=== PATIENT | female | born 1960 | race African-American/Black ===

== ENCOUNTER 2023-12-07 08:18 | Emergency (ER) | payer BC, SELFPAY ==
[2023-12-07 08:22] VITALS: BP 139/95; PULSE 111; RESP 24; TEMP 36; O2SAT 100; BMI 26.3
[2023-12-07 08:48] LABS: Glucose, Point-of-Care* 113 mg/dl (60-115)
[2023-12-07 08:53] VITALS: O2SAT 98
--- NOTE | 2023-12-07 08:53 | XR_ITS ---
Patient: ANTIONE BARROW Facility:?[facility] Patient ID:?[id number] Site Patient ID:?[id number]. Site :?[id number] Study:?XRay-Chest 2 view-12/07/2023 9:15:29 AM Ordering Physician:Jamshid Townsend Final Report: INDICATION: Dyspnea COMPARISON: February 13, 2019 TECHNIQUE: PA and lateral views of the chest were acquired FINDINGS: TUBES AND LINES: None. HEART AND MEDIASTINUM: The heart size is normal. The mediastinal contour appears normal for patient age. LUNGS AND PLEURAL SPACES: Airspace opacity at the left base. This was present in 2019. This could be a chronic finding such as scarring or could be a recurrent abnormality such as pneumonia.Examination is otherwise unremarkable. OSSEOUS STRUCTURES: Age-appropriate appearance. No acute focal finding. IMPRESSION: Airspace opacity at the left base. This was present in 2019. This could be a chronic finding such as focal scarring though a recurrent abnormality such as pneumonia is possible. Correlate with the clinical findings. Dictated by Fabio Tolliver MD @ 12/07/2023 9:23:32 AM Signed by:?Fabio Tolliver MD @12/07/2023 9:23:32 AM (Electronic Signature)
--- NOTE | 2023-12-07 08:58 | ED.GENADULT ---
HPI - General Adult General Chief complaint: Diabetic Related Problem Stated complaint: low blood sugar Time Seen by Provider: 12/07/23 08:20 Source: patient and family Mode of arrival: ambulatory Limitations: no limitations History of Present Illness HPI narrative: Patient is a 63-year-old female, history of insulin-dependent diabetes presenting today with nausea, vomiting and diarrhea going on day 3. Today she stated that she felt so weak that she was afraid to be home alone her partner went to work so she requested to be brought into the emergency department. This all started Tuesday afternoon with multiple episodes of vomiting and diarrhea. The vomiting subsided last evening she did not have any vomiting overnight or today. However, the diarrhea continues. She states that she has already had 4 or 5 episodes in the last 5 hours. Patient denies fevers. 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 so she has a chronic cough and chronic mild shortness of breath, these 2 things are unchanged. She is also on chronic antibiotic therapy because of her lung condition. She denies chest pain or abdominal pain. She denies increased urinary frequency, urgency or dysuria. She denies any blood in her vomit or stool. She states that she did take her long-acting insulin both Tuesday and Tuesday, did not take her short-acting with meals because she has not been eating. She has noticed that her glucose has been in the 50s and 60s and she has to eat a small snack or sugar to bring it back up but it falls fairly quickly again back into the 60s and she is concerned about this. She denies headache, confusion, altered mental status, slurred speech or any neurologic deficits. She denies recent traveling, she denies any skin rashes. Patient also has history of diabetic peripheral neuropathy. Patient lives with her significant other in [place], she is here because her partner got a colonoscopy at [facility] and she was impressed by the care that he received. Related Data Home Medications ?Medication ?Instructions ?Recorded ?Confirmed beclomethasone dipropionate 80 inhalation 12/07/23 mcg/actuation HFA breath activated aerosol (Qvar RediHaler) dulaglutide 4.5 mg/0.5 mL mg subcut 12/07/23 subcutaneous pen injector ([facility] flash glucose sensor (FreeStyle 12/07/23 12/07/23 Edgar 2 Sensor kit) gabapentin 300 mg capsule mg PO 12/07/23 glipizide 5 mg tablet, extended 5 mg PO DAILY 12/07/23 12/07/23 release 24 hr insulin aspart U-100 100 unit/mL subcut 12/07/23 (3 mL) subcutaneous pen (Novolog FlexPen U-100 Insulin aspart) insulin degludec 200 unit/mL (3 unit subcut 12/07/23 mL) subcutaneous pen (Tresiba FlexTouch U-200 insulin) insulin glargine-yfgn 100 unit/mL unit subcut 12/07/23 (3 mL) subcutaneous pen (Semglee (insulin glargine-yfgn) Pen) mycophenolate mofetil 500 mg tablet 1,000 mg PO BID 12/07/23 12/07/23 omeprazole 20 mg capsule,delayed 20 mg PO DAILY 12/07/23 12/07/23 release spironolactone 50 mg tablet 50 mg PO DAILY 12/07/23 12/07/23 sulfamethoxazole 800 1 tab PO 3XW 12/07/23 12/07/23 mg-trimethoprim 160 mg tablet Allergies Allergy/AdvReac Type Severity Reaction Status Date / Time No Known Drug Allergies Allergy Verified 12/07/23 08:31 Review of Systems Status of ROS: Reports: 10 or more systems reviewed and unremarkable except as noted in History and below [facility] Social History Smoking Status: Never smoker Do you use any of these nicotine containing products: None How often do you have a drink containing alcohol: never How often do you have six or more drinks on one occasion: Never AUDIT-C Alcohol total score: 0 Non-prescribed substance use: denies use Exam Narrative: Exam Narrative: Well-nourished well-developed patient in no acute distress. Alert and oriented. Answers questions appropriately. Mood and affect are appropriate. Thoughts are goal oriented and rational. No tangential or magical thinking noted. Patient speaks in full sentences without needing to catch her breath. She does not appear ill or toxic. HEENT: Normocephalic atraumatic. Pupils are equally round reactive to light. Extraocular muscles are intact. Conjunctivae are moist without any icterus noted. Moist mucous membranes. Posterior pharynx is normal. Neck is soft without any lymphadenopathy or thyromegaly. No masses are appreciated. Cardiovascular: Heart is regular rate and rhythm S1 and S2 are present without any murmurs. Lungs: Clear to auscultation bilaterally no wheezes rhonchi or rales are appreciated. Patient takes deep breaths without any discomfort. Abdomen: Soft and nontender nondistended with normal bowel sounds. No guarding or rebound. No masses or organomegaly appreciated. Extremities: Bilateral lower extremities are without edema. Skin: Well perfused without any obvious rashes. Const: Vital Signs, click to edit/add: Vital Signs - 24 hr 12/07/23 08:22 12/07/23 08:53 12/07/23 10:49 Temperature 96.8 F L Pulse Rate [Right Pulse Oximeter] 111 H 92 Respiratory Rate 24 16 Blood Pressure [Ri ght Upper Arm] 139/95 H 128/91 H Pulse Oximetry 100 98 98 Oxygen Delivery Me thod Room Air Room Air Course Course ED Course: Upon arrival patient is tachycardia with a pulse of 111. IV established and labs were drawn. Point of care glucose 113. Because of her weakness and tachycardia we did start her on 500 mL of normal saline as we encouraged her to drink water. CBC was unremarkable. Chemistries were normal. Lactate 1.4. Normal magnesium. LFTs unremarkable. Troponin less than 0.01. CRP less than 0.5. Triple swabs negative. UA unremarkable. Chest x-ray, read by me, does show a left lower lobe infiltrate. The per the radiologist this was present in 2019 and is not new. Given the fact that the patient has no new cough, shortness of breath, or fever I do not think that this represents an acute pneumonia. Patient was monitored for approximately 3 hours and did not have any diarrhea so we were not able to do a C diff collection. After fluids she did feel better, pulse went down into the 90s. Vital Signs Vital signs: Initial Vital Signs Temperature 96.8 F L 12/07/23 08:22 Temperature Source Temporal Artery Scan 12/07/23 08:22 Pulse Rate 111 H 12/07/23 08:22 Pulse Rhythm Regular 12/07/23 08:22 Respiratory Rate 24 12/07/23 08:22 Blood Pressure 139/95 H 12/07/23 08:22 Blood Pressure Mean 109 H 12/07/23 08:22 Blood Pressure Position Supine 12/07/23 08:22 Pulse Oximetry 100 12/07/23 08:22 Oxygen Delivery Method Room Air 12/07/23 08:22 Vital Signs Temperature 96.8 F L 12/07/23 08:22 Pulse Rate 111 H 12/07/23 08:22 Respiratory Rate 24 12/07/23 08:22 Blood Pressure 139/95 H 12/07/23 08:22 Pulse Oximetry 100 12/07/23 08:22 Oxygen Delivery Method Room Air 12/07/23 08:22 Temperature 96.8 F L 12/07/23 08:22 Pulse Rate 92 12/07/23 10:49 Respiratory Rate 16 12/07/23 10:49 Blood Pressure 128/91 H 12/07/23 10:49 Pulse Oximetry 98 12/07/23 10:49 Oxygen Delivery Method Room Air 12/07/23 10:49 Medications Administered Medications: Discontinued Medications Generic Name Dose Route Start Last Admin Trade Name Freq PRN Reason Stop Dose Admin Sodium Chloride 500 mls @ 500 mls/hr 12/07/23 08:52 12/07/23 10:20 0.9 % Sodium Chloride 500 Ml IV 12/07/23 09:51 Infused .Q1H ONE Infusion Ondansetron HCl 4 mg 12/07/23 08:52 12/07/23 09:00 Ondansetron 2 Mg/Ml Inj IVP 12/07/23 08:53 4 mg ONCE ONE Administration Medical Decision Making MDM Narrative Medical decision making narrative: 63-year-old female probable gastroenteritis. We discussed symptomatic treatment and careful monitoring of her blood sugars. Would recommend she return stool sample for C diff collection. Lab Data Lab results reviewed: Yes I reviewed the patient's lab results Labs: Lab Results 12/07/23 12/07/23 12/07/23 Range/Units 08:40 08:45 10:30 WBC 7.54 (4.50-11.00) K/uL RBC 4.31 (4.00-5.20) m/uL Hgb 13.2 (12.0-16.0) gm/dL Hct 40.2 (33.0-51.0) % MCV 93 (80-100) fL MCH 31 (26-34) pg MCHC 33 (32-36) gm/dL RDW Coeff of Yvette 12.2 (11.5-15.5) % Plt Count 310 (140-440) K/uL Neut % (Auto) 50.3 (42.0-72.0) % Lymph % (Auto) 40.5 (20-44) % [place] % (Auto) 8.0 (0.0-11.0) % Eos % (Auto) 0.7 (0.0-7.0) % Baso % (Auto) 0.4 (0.0-3.0) % Neut # (Auto) 3.80 (1.7-7.0) K/uL Lymph # (Auto) 3.05 H (0.90-2.90) K/uL [place] # (Auto) 0.60 (0.00-0.90) K/UL Eos # (Auto) 0.05 (0.00-0.50) K/uL Baso # (Auto) 0.03 (0.00-0.30) K/uL Abs Immat Gran (auto) 0.01 (0.00-0.30) K/uL Imm/Tot Granulo (auto) 0.1 % Sodium 137 (135-149) mmol/L Potassium 3.9 (3.6-5.1) mmol/L Chloride 104 (96-114) mmol/L Carbon Dioxide 23 (20-32) mmol/L Anion Gap 10 (7-15) mEq/L BUN 14 (7-30) mg/dL Creatinine 0.9 (0.5-1.5) mg/dL Estimated Creat Clear 52.91 Estimated GFR 71 ml/min Glucose 114 (60-115) mg/dL Lactate 1.4 (0.5-1.9) mmol/L Calcium 10.4 (8.4-10.6) mg/dL Magnesium 2.2 (1.5-2.6) mg/dL Total Bilirubin 1.2 (0.1-1.5) mg/dL Direct Bilirubin 0.2 (0.0-0.5) mg/dL AST 40 H (12-35) U/L ALT 29 (4-35) U/L Alkaline Phosphatase 68 (40-150) U/L Troponin I < 0.01 L (0.01-0.04) ng/mL C-Reactive Protein < 0.5 L (0.5-1.0) mg/dL Total Protein 8.4 H (6.0-8.3) g/dL Albumin 4.9 (3.3-5.0) g/dL Urine Color Dark yellow (Yellow) Urine Appearance Slightly Cloudy A (Clear) Urine pH 6.0 (5.0-8.5) Ur Specific Clarks 1.025 (1.000-1.030) Urine Protein 1+ A (Negative) Urine Glucose (UA) Negative (Negative) Urine Ketones Negative (Negative) Urine Blood Negative (Negative) Urine Nitrite Negative (Negative) Urine Bilirubin 1+ A (Negative) Urine Urobilinogen 1.0 (0.2-1.0) Ur Leukocyte Esterase Trace A (Negative) Urine RBC 0-2 (0-2) Urine WBC 0-2 (0-5) Ur Squamous Epith Cells Few (None-Few) Urine Bacteria Few A (None) Urine Mucus Few A (None) SARS-CoV-2 (PCR) Negative SARS-CoV-2 (Negative) Influenza Type A (PCR) Negative PCR FLU A (Negative) Influenza Type B (PCR) Negative PCR FLU B (Negative) RSV (PCR) Negative PCR RSV (Negative) POC Glucose 113 (60-115) mg/dl Imaging Data Chest x-ray: Attestation: I have reviewed the pertinent imaging results. Radiologist's impression: COMPARISON: February 13, 2019 TECHNIQUE: PA and lateral views of the chest were acquired FINDINGS: TUBES AND LINES: None. HEART AND MEDIASTINUM: The heart size is normal. The mediastinal contour appears normal for patient age. LUNGS AND PLEURAL SPACES: Airspace opacity at the left base. This was present in 2019. This could be a chronic finding such as scarring or could be a recurrent abnormality such as pneumonia.Examination is otherwise unremarkable. OSSEOUS STRUCTURES: Age-appropriate appearance. No acute focal finding. IMPRESSION: Airspace opacity at the left base. This was present in 2019. This could be a chronic finding such as focal scarring though a recurrent abnormality such as pneumonia is possible. Correlate with the clinical findings. Discharge Plan Discharge Clinical Impression: Gastroenteritis Additional Instructions: You will be sent home today with a stool collecting kit, return the sample when you are able. Make sure to stay well hydrated. Make sure that you are checking your glucose levels frequently throughout the day, avoid fast acting insulin until your appetite goes back to normal. Follow-up with your primary care provider at the end of this week or early next week. Prescriptions: No Action glipizide 5 mg tablet extended release 24hr 5 mg PO DAILY sulfamethoxazole-trimethoprim 800-160 mg tablet 1 tab PO 3XW mycophenolate mofetil 500 mg tablet 1,000 mg PO BID gabapentin 300 mg capsule PO omeprazole 20 mg capsule,delayed release(DR/EC) 20 mg PO DAILY spironolactone 50 mg tablet 50 mg PO DAILY insulin aspart U-100 [Novolog FlexPen U-100 Insulin] 100 unit/mL (3 mL) insulin pen subcut insulin degludec [Tresiba FlexTouch U-200] 200 unit/mL (3 mL) insulin pen subcut Qvar RediHaler 80 mcg/actuation HFA aerosol breath activated inhalation (DME) FreeStyle Edgar 2 Sensor Kit MISCELLANEOUS Patient Comments: [NO ORIGINAL SIG] Trulicity 4.5 mg/0.5 mL pen injector subcut insulin glargine-yfgn [Semglee(insulin glarg-yfgn)Pen] 100 unit/mL (3 mL) insulin pen subcut Follow Up/Referrals: Provider,Not a Local [Primary Care Provider] - Stand Alone [facility]: [facility]
[2023-12-07 09:00] LABS: Lactate* 1.4 mmol/L (0.5-1.9)
[2023-12-07] MEDS: ONDANSETRON 2 MG/ML inj 4 MG IVP (09:00)
--- OUTSIDE RECORDS SUMMARY | 2023-12-07 09:01 | XMS_ITS | Clinical Summary ---
Author Organization [facility] Address [place], [place] [address] Care Team Providers Care Specialty Plant Supervisor Name Role Phone Cyndi Garcia PA-C Primary Care Provider Vladimir Caruso Unavailable [phone] Allergies No known active allergies Medications Medication Sig Dispensed Refills Start Date End Date Status glipiZIDE (GLUCOTROL) 5 mg tablet Take 5 mg by mouth once daily before a meal. Active dulaglutide (Trulicity) 4.5 mg/0.5 mL subcutaneous pen Inject 4.5 mg subcutaneous once weekly. 2 mL 07/16/2022 Active omeprazole 20 mg tablet Take 1 Tablet (20 mg) by mouth once daily. 0 07/16/2022 Active cholecalciferol (Vitamin D-3) 400 unit tablet Take 1 Tablet (400 units) by mouth once daily. 40 units = 1 mcg (400 unit = 10 mcg) 0 07/16/2022 Active rosuvastatin (Crestor) 20 mg tabletIndications:Co ronary artery calcification seen on CAT scan,Mixed hyperlipidemia Take 1 Tablet (20 mg) by mouth once daily. 90 Tablet 1 12/17/2022 Active beclomethasone dipropionate (Qvar RediHaler) 80 mcg/actuation HFAb HFA inhalerIndications:C hronic cough Inhale 1 Puff by mouth two times daily. Doesn't need a spacer or shaking. 1 Each 5 04/08/2023 Active trimethoprim-sulfame thoxazole, 160-800 mg, (BACTRIM DS, SEPTRA DS) tabIndications:ILD (interstitial lung disease) (HC) Take one tab Mon, Wed, Fri oral 36 Tablet 3 04/08/2023 Active predniSONE (DELTASONE) 5 mg tabletIndications:IL D (interstitial lung disease) (HC) Take 1 Tablet (5 mg) by mouth once daily. 90 Tablet 1 04/08/2023 Active furosemide (Lasix) 20 mg tabletIndications:IL D (interstitial lung disease) (HC) Take 1 Tablet (20 mg) by mouth once daily. 30 Tablet 1 04/12/2023 Active mycophenolate (CELLCEPT) 500 mg tabletIndications:IL D (interstitial lung disease) (HC) Take 2 Tablets (1,000 mg) by mouth two times daily. 360 Tablet 1 08/26/2023 Active NovoLOG Flexpen U-100 Insulin 100 unit/mL (3 mL) pen 08/19/2023 Active Tresiba FlexTouch U-200 200 unit/mL (3 mL) pen 09/02/2023 Active gabapentin (NEURONTIN) 100 mg capsuleIndications:C hronic cough Take 3 Capsules (300 mg) by mouth two times daily. 90 Capsule 3 10/19/2023 Active Active Problems Problem Noted Date Diagnosed Date ILD (interstitial lung disease) 10/29/2022 High risk medication use 10/29/2022 Need for prophylactic antibiotic 10/29/2022 Localized adiposity 01/24/2013 Encounters Date Type Department Care Team Description 10/18/2023 Telephone [facility] [address] [place] [address] [address] [place] [address] Lesa Burgos MD Need Meds (Gabapentin ) 09/09/2023 1:15 PM CDT Office Visit [facility] [address] [place] [address] Vladimir Caruso MBBS Follow Up (ILD./Continued tingling in toes and finger tips./Weaning off prednisone, will be off mid September.) 09/09/2023 Travel from Last 3 Months Immunizations Name Administration Dates Next Due Hepatitis A (Peds),Unspecified 04/21/1999 Influenza, IIV3 (Age >=3 years) 01/01/2011 Influenza, IIV4 (=>6mos) MDV 11/12/2016 Td (Age >=7 Years) 06/05/1997 Td, Preservative Free (age >= 7 Years) 4 Tdap 01/21/2012 Social History Tobacco Use Types Packs/Day Years Used Date Smoking Tobacco: Never Smokeless Tobacco: Never Tobacco Cessation:Counseling Given: Not Answered Alcohol Use Standard Drinks/Week Comments Yes 0 (1 standard drink = 0.6 oz pur e alcohol) socially/ if at all Social Connections Answer Date Recorded Frequency of Communication with Friends and Fami ly Not on file 07/16/2022 Sex and Gender Information Value Date Recorded Sex Assigned at Not on file Gender Identity Not on file Sexual Orientation Not on file Obstetrics History Last Filed Vital Signs Vital Sign Reading Time Taken Comments Blood Pressure 94/66 09/09/2023 1:21 PM CDT Pulse 92 09/09/2023 1:21 PM CDT Temperature 36.6 ??C (97.9 ??F) 09/09/2023 1:21 PM CD T Respiratory Rate 16 08/26/2023 3:02 PM CDT Oxygen Saturation 95% 09/09/2023 1:21 PM CDT Inhaled Oxygen Concentration - - Weight 63 kg (139 lb) 09/09/2023 1:21 PM CDT Height 149.9 cm (4' 11.02) 12/17/2022 10:36 AM CDT Body Mass Index 28.06 12/17/2022 10:36 AM CDT Plan of Treatment Upcoming Encounters Date Type Department Care Team (Late st Contact Info) Description 02/10/2024 11:15 AM 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 AND 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 SUPERVISOR Office Visit [facility] [address] [facility] [address] [place] [address] Lesa Burgos MD [address] [facility] [address] [place] [address] 03/09/2024 1:15 PM PLATING AND POINT ASSEMBLY SUPERVISOR Office Visit [facility] [address] [place] [phone] Vladimir Caruso MBBS [address] [place] [phone] Health Maintenance Due Date Last Done Comments Pneumococcal series for age 6-64 (1 of 2 - PCV) 05/29/1965 Depression screening for age 12+ 1971 Zoster (shingles) series for age 50+ (1 of 2) 05/29/1978 Pap test for age 21-65 05/29/1980 Colonoscopy through age 75 05/29/2004 Mammogram for age 45-75 05/29/2004 Tetanus booster 01/20/2022 01/21/2012, 10/2003, 06/05/1997 COVID-19 vaccine series ( season) 2023 12/16/2022, 03/20/2021, 08/22/2020, Additional history exists Influenza for age 50-64 10/16/2023 11/12/2016, 01/01 BMI (ht and wt on same day) for age 18+ 12/18/2023 12/17/2022, 10/29/2022, 09/03/2022, Additional history exists Lipids for age 45-75 08/16/2028 08/17/2023 Tdap Completed 01/21/2012 HIV for age 15-65 Completed 09/17/2022 Hepatitis C screening for ag e 18-79 Completed 09/17/2022 Procedures Procedure Name Priority Date/Time Associated Diagnosis Comments LIPID PANEL W REFLEX MEASURED LDL Routine 08/17/2023 8:32 AM CDT Coronary artery calcification seen on CAT scan Mixed hyperlipidemia LC HIV-1/O/2, 4TH GENERATION Routine 09/17/2022 10:54 AM CDT ILD (interstitial lung disease) (HC) LC HCV ANTIBODY RFX TO QUANT PCR Routine 09/17/2022 10:54 AM CDT ILD (interstitial lung disease) (HC) from Last 3 Months or Most Recently Relevant to Health Maintenance Results * LIPID PANEL W REFLEX MEASURED LDL (08/17/2023 8:32 AM CDT) CHOLESTEROL,TOTAL 109 100 - 199 mg/dL 08/17/2023 5:46 PM CDT [facility] Comment: Cholesterol, Total Reference Ranges Desirable <200 mg/dL Borderline 200-239 mg/dL High >=240 mg/dL TRIGLYCERIDES 88 <150 mg/dL 08/17/2023 5:46 PM CDT [facility] HDL CHOLESTEROL 45 >40 mg/dL 5:46 PM CDT [facility] NON-HDL CHOLESTEROL 64 <145 mg/dl 08/17/2023 5:46 PM CDT [facility] CHOL/HDL RATIO 2.42 <4.50 08/17/2023 5:46 PM CDT [facility] LDL CHOLESTEROL 46 <=130 mg/dL 08/17/2023 5:46 PM CDT [facility] VLDL CHOLESTEROL 18 <=30 mg/dL 08/17/2023 5:46 PM CDT [facility] PROVIDER ORDERED STATUS FASTING 08/17/2023 5:46 PM CDT [facility] Blood BLOOD SPECIMEN / Unknown Venipuncture / Unknown 08/17/2023 8:32 AM CDT 08/17/2023 8:32 AM CDT Singh Vizcaino MD [facility]MI[facility] [address] [place] [address], * LC HCV ANTIBODY RFX TO QUANT PCR (09/17/2022 10:54 AM CDT) HCV Ab Non Reactive Non Reactive 09/21/2022 11:06 PM CDT [facility] Blood BLOOD SPECIMEN / Unknown Venipuncture / Unknown 09/17/2022 10:54 AM CDT 09/17/2022 10:54 AM CDT Narrative [facility] - 09/21/2022 11:06 PM CDT Performed at: ??[address] ??[id number] River Guide: Renato Read MD, Phone: ??[phone] Lesa Burgos MD LABORATORY [facility] ([facility]) [address] [place] [address] * LC HIV-1/O/2, 4TH GENERATION (09/17/2022 10:54 AM CDT) HIV Scr 4th Gen Non Reactive Non Reactive 09/22/2022 4:[address] [facility] ([facility]) Comment: HIV Negative HIV-1/HIV-2 antibodies and HIV-1 p24 antigen were NOT detected. There is no laboratory evidence of HIV infection. Blood BLOOD SPECIMEN / Unknown Venipuncture / Unknown 09/17/2022 10:54 AM CDT 09/17/2022 10:54 AM CDT Narrative [facility] - 09/22/2022 4:07 AM CDT Performed at: ??[address] ??[id number] River Guide: Renato Read MD, Phone: ??[phone] Lesa Burgos MD LABORATORY Performing Organization Address City/[facility]/ZIP Co de Phone Number [facility] ([facility]) [address] [place] [address] from Last 3 Months or Most Recently Relevant to Health Maintenance Insurance Payer Benefit Plan / Group Subscriber ID Effective Dates Phone Address Type [facility] [id number] [address]23-[address] [place] [address] [place] [address] COSMETIC PROCEDURES COSMETIC PROCEDURE HB ONLY [id number] 04/05/2019-Prese nt [address] [facility]. ATTN: [facility] [address] Advance Directives * Full Code (Latest Code Status on File) Date Activated Date Inactivated Comments 01/24/2013 8:42 AM 01/24/2013 3:26 PM Care Teams Specialty Plant Supervisor Relationship Specialty Start Date End Date Cyndi Garcia PA-C [address] [place] [address] PCP - General Physician Modeling Director 09/10/22 Vladimir Caruso MBBS [address] [place] [address] Rheumatology 04/29/23
[2023-12-07 09:03] LABS: Basophils Absolute Auto 0.03 K/uL (0.00-0.30); Basophils Percent Auto 0.4 % (0.0-3.0); Eosinophils Absolute Auto 0.05 K/uL (0.00-0.50); Eosinophils Percent Auto 0.7 % (0.0-7.0); Hematocrit 40.2 % (33.0-51.0); Hemoglobin* 13.2 gm/dL (12.0-16.0); Immature Granulocytes Abs Auto 0.01 K/uL (0.00-0.30); Immature Granulocytes Pct Auto 0.1 %; Lymphocytes Absolute Auto 3.05 K/uL (0.90-2.90); Lymphocytes Percent Auto 40.5 % (20-44); Mean Corpuscular HGB Conc 33 gm/dL (32-36); Mean Corpuscular Hemoglobin 31 pg (26-34); Mean Corpuscular Volume 93 fL (80-100); Neutrophils Percent Auto 50.3 % (42.0-72.0); Platelet Count* 310 K/uL (140-440); RDW Coefficient of Variation % 12.2 % (11.5-15.5); Red Blood Count 4.31 m/uL (4.00-5.20); White Blood Count* 7.54 K/uL (4.50-11.00)
--- OUTSIDE RECORDS SUMMARY | 2023-12-07 09:03 | XMS_ITS ---
Author Organization [facility] Address [address] [id number] Care Team Providers Care Instrument Repair Supervisor Name Role Phone Cyndi Garcia PA-C Primary Care Provider REASON FOR VISIT Recall Colonoscopy Encounters Encounter Location Date Provider Diagnosis [address] [phone] 11/28/2023 Cyndi Garcia Plan Of Treatment Next Appt Details Provider Name:Cyndi waters, 12/09/2023 01:00:00 PM, [address] [place], [address], Provider Name:Cyndi waters, 12/23/2023 01:15:00 PM, [address] [place] [address], [phone], Progress Notes * Valerie WISDOM MDOB: (63 yo F)Acc No.[id number]:11/28/2023 Patient:?Valerie WISDOM :1960???Age:63 Y???Sex:Female Address:[facility] [address], [place] [address] * * Date:?
--- OUTSIDE RECORDS SUMMARY | 2023-12-07 09:03 | XMS_ITS | Patient Health Record ---
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 Manager Name Role Phone Cyndi Garcia PA-C Primary Care Provider [phone] Allergies Allergen (clinical drug ingredient) Drug/Non Drug Allergy documented on EMR Reaction Allergy Type Onset Date Status metformin metFORMIN HCl ER stomach upset Drug Allergy Active Results Component Value Reference Range Notes Microalbumin (In-House) Reviewed date:02/18/2023 02:26:24 PM Interpretation: Performing Lab: Notes/Report: Basic Metabolic Profile Reviewed date:06/21/2023 02:52:17 PM Interpretation: Performing Lab: Notes/Report: Sodium 139 135-145 mmol/L Reference int ervals for this test were updated on 11/09/2022 to more accurately reflect our healthy population. There may be differences in the flagging of prior results with similar values performed with this method. Interpretation of those prior results can be made in the context of the updated reference intervals. Potassium 4.0 3.4-5.3 mmol/L Chloride 104 98-107 mmol/L Carbon Dioxide (CO2) 22 22-29 mmol/L Anion Gap 13 7-15 mmol/L Urea Nitrogen 15.0 8.0-23.0 mg/dL Creatinine 1.10 0.51-0.95 mg/dL GFR Estimate 56 >60 mL/min/1.73m2 Calcium 9.8 8.8-10.2 mg/dL Glucose 87 70-99 mg/dL PERFORMED BY: [facility], [address] [address] [place] [id number],[facility] [id number] . Comprehensive Metabolic Reviewed date:05/21/2023 05:23:43 PM Interpretation:glucose 131 Performing Lab: Notes/Report: Sodium 139 135-145 mmol/L Reference int ervals for this test were updated on 11/09/2022 to more accurately reflect our healthy population. There may be differences in the flagging of prior results with similar values performed with this method. Interpretation of those prior results can be made in the context of the updated reference intervals. Potassium 4.3 3.4-5.3 mmol/L Carbon Dioxide (CO2) 23 22-29 mmol/L Anion Gap 14 7-15 mmol/L Urea Nitrogen 14.8 8.0-23.0 mg/dL Creatinine 0.92 0.51-0.95 mg/dL GFR Estimate 70 >60 mL/min/1.73m2 Calcium 9.7 8.8-10.2 mg/dL Chloride 102 98-107 mmol/L Glucose 131 70-99 mg/dL Alkaline Phosphatase 63 40-150 U/L Referen ce intervals for this test were updated on 12/28/2022 to more accurately reflect our healthy population. There may be differences in the flagging of prior results with similar values performed with this method. Interpretation of those prior results can be made in the context of the updated reference intervals. AST 39 0-45 U/L Reference inter vals for this test were updated on 07/26/2022 to more accurately reflect our healthy population. There may be differences in the flagging of prior results with similar values performed with this method. Interpretation of those prior results can be made in the context of the updated reference intervals. ALT 44 0-50 U/L Reference inter vals for this test were updated on 07/26/2022 to more accurately reflect our healthy population. There may be differences in the flagging of prior results with similar values performed with this method. Interpretation of those prior results can be made in the context of the updated reference intervals. Protein Total 7.0 6.4-8.3 g/dL Albumin 4.1 3.5-5.2 g/dL Bilirubin Total 0.8 <=1.2 mg/dL PERFORMED BY: [facility], [place] [address] [place] [address] [place] [id number],[facility] [id number] . Comprehensive Metabolic Reviewed date:02/19/2023 07:31:15 PM Interpretation:glucose 123; AST 49; ALT 68 Performing Lab: Notes/Report: Sodium 138 135-145 mmol/L Reference int ervals for this test were updated on 11/09/2022 to more accurately reflect our healthy population. There may be differences in the flagging of prior results with similar values performed with this method. Interpretation of those prior results can be made in the context of the updated reference intervals. Potassium 4.1 3.4-5.3 mmol/L Carbon Dioxide (CO2) 25 22-29 mmol/L Anion Gap 10 7-15 mmol/L Urea Nitrogen 12.2 8.0-23.0 mg/dL Creatinine 0.68 0.51-0.95 mg/dL GFR Estimate >90 >60 mL/min/1.73m2 Calcium 9.1 8.8-10.2 mg/dL Chloride 103 98-107 mmol/L Glucose 123 70-99 mg/dL Alkaline Phosphatase 64 40-150 U/L Referen ce intervals for this test were updated on 12/28/2022 to more accurately reflect our healthy population. There may be differences in the flagging of prior results with similar values performed with this method. Interpretation of those prior results can be made in the context of the updated reference intervals. AST 49 0-45 U/L Reference inter vals for this test were updated on 07/26/2022 to more accurately reflect our healthy population. There may be differences in the flagging of prior results with similar values performed with this method. Interpretation of those prior results can be made in the context of the updated reference intervals. ALT 68 0-50 U/L Reference inter vals for this test were updated on 07/26/2022 to more accurately reflect our healthy population. There may be differences in the flagging of prior results with similar values performed with this method. Interpretation of those prior results can be made in the context of the updated reference intervals. Protein Total 7.1 6.4-8.3 g/dL Albumin 4.2 3.5-5.2 g/dL Bilirubin Total 0.8 <=1.2 mg/dL PERFORMED BY: [facility], [place] [address] [place] [id number],[facility] [id number] . GLYCOSYLATED HGB A1C Reviewed date:02/18/2023 01:21:53 PM Interpretation:9.9 Performing Lab: Notes/Report: GLYCOSYLATED HGB A1C Reviewed date:05/20/2023 01:12:20 PM Interpretation:8.6 Performing Lab: Notes/Report: GLYCOSYLATED HGB A1C Reviewed date:09/02/2023 04:45:30 PM Interpretation:7.8 Performing Lab: Notes/Report: GLYCOSYLATED HGB A1C Reviewed date:02/02/2023 01:03:29 PM Interpretation: Performing Lab: Notes/Report: Lipid [place] Reviewed date:02/19/2023 07:28:58 PM Interpretation:LDL 60; HDL 47; trigs 102 Performing Lab: Notes/Report: Cholesterol Desirable: <200 mg/dL Triglycerides Normal: Less than 150 mg/dL Borderline High: 150-199 mg/dL High: 200-499 mg/dL Very High: Greater than or equal to 500 mg/dL Direct Measure HDL Female: Greater than or equal to 50 mg/dL Male: Greater than or equal to 40 mg/dL LDL Cholesterol Desirable: <100mg/dL Above Desirable: 100-129 mg/dL Borderline High: 130-159 mg/dL High: 160-189 mg/dL Very High: >= 190 mg/dL Non HDL Cholesterol Desirable: 130 mg/dL Above Desirable: 130-159 mg/dL Borderline High: 160-189 mg/dL High: 190-219 mg/dL Very High: Greater than or equal to 220 mg/dL PERFORMED BY: [facility], [address] [address] [place] [id number],[facility] [id number] . Cholesterol 127 <200 mg/dL Triglycerides 102 <150 mg/dL Direct Measure HDL 47 >=50 mg/dL LDL Cholesterol Calculated 60 <=100 mg/dL Non HDL Cholesterol 80 <130 mg/dL Patient Fasting > 8hrs? Unknown Diabetic Eye Exam Reviewed date:05/24/2023 03:12:22 PM Interpretation:Abnormal Performing Lab: Notes/Report: Abnormal Reason For Referral Reason Dermatology Cons- Ev al and Treat Diagnosis 1 Hair loss (L65.9) Referral Organization [facility] Referring Provider First Name Cyndi Referring Provider Last Name Jose Referring Provider Speciality [facility] Referred Address [address],[place], [place],[address],[place] Referred Provider Specialty Dermatology General Notes Tess Johansen 0 02/18/2023 01:59:52 PM > faxed Referral Priority Routine Medications Medication SIG (Take, Route, Frequency, Duration) Notes Start Date End Date Status FreeStyle Edgar 2 Sensor Systm - for 90 days Active Tresiba FlexTouch 200 UNIT/ML Inject 148units Subcutaneous once daily for 30 days 01/12/2023 Active Sulfamethoxazole-Trim ethoprim 800-160 MG 1 tab(s) orally once daily M, W, F Active glipiZIDE ER 5 MG TAKE ONE TABLET BY MOUTH IN THE EVENING WITH FOOD for 90 days Active Mycophenolate Mofetil 500 MG 1 tablet Orally as needed every 12 hours Active glipiZIDE XL 10 MG 1 tablet with breakfast Orally Once a day for 90 days 07/06/2019 Active Aspirin 325 MG 1 tab(s) orally every other day Active NovoLOG FlexPen 100 UNIT/ML Inject 12units before breakfast, 10units before lunch, and lunch and 14-18 units before supper/dinner Subcutaneous three times daily Please fill NovoLOG not NovoLIN 04/15/2023 Active ALPRAZolam 0.25 MG 1 tab(s) orally prior to flight, may repeat x1 if needed. 07/12/2023 Active Note - Patient may only work 32 hours per week due to chronic health issues. 04/14/2023 Active Benzonatate 100 MG 1 capsule as needed Orally Three times a day as needed for cough 01/04/2022 Active Omeprazole 20 MG TAKE 1 CAPSULE BY MOUTH EVERY DAY for 90 Active Gabapentin 300 MG 1 capsule Orally twice a day for 90 days 10/19/2023 Active Diabetic Glucometer . . . Active predniSONE 5 MG 1 tablet Orally every other day x1 month, then stop Active Spironolactone 50 MG TAKE ONE TABLET BY MOUTH ONE TIME DAILY for 30 Active D-5000 125 MCG (5000 UT) TAKE 1 TABLET BY MOUTH EVERY OTHER DAY for 180 Needs appointment before next refill Active Pen [place] 32G X 4 MM as directed for use with diabetic injectables for 90 days 09/24/2022 Active FreeStyle Edgar 2 Sensor - as directed for 90 day(s) 12/12/2020 Active Rosuvastatin Calcium 20 MG 1 tablet Orally Once a day at bedtime for 90 days Active Immunizations Vaccine Route Administration Date Status Comme nts Influenza 3 Years and above WITH Preservative IM Intramuscular 01/01/2011 Administered Influenza 6 months and older Preservative Free IM Intramuscular 11/12/2022 Administered Influenza 6 months and older WITH Preservative IM Intramuscular 11/12/2016 Administered Td (7 yrs and Older) Unknown 10/24/2003 Administered Tdap (Adacel 11-64 yrs) IM Intramuscular 01/21/2012 Admini stered Social History Tobacco Use: Social History Observation Description Date Details (start date - stop date) Never Smoker NA - NA Alcohol Screen Question Answer Notes Did you have a drink contain ing alcohol in the past year? Yes How often did you have a dri nk containing alcohol in the past year? Two to four times a month (2 points) How many drinks did you have on a typical day when you were drinking in the past year? 1 or 2 (0 points) How often did you have six o r more drinks on one occasion in the past year? Never (0 points) Points 2 Interpretation Negative Tobacco Control (Standard) Question Answer Notes Tobacco use: Nonsmoker Additional Findings: Tobacco non-user Current no nsmoker Problems Problem Type SNOMED Code ICD Code Onset Dates Problem Status W/U Status Risk Notes Problem 00381392 Vitamin D deficiency (E55.9) Active confirmed Problem 703914528 GERD without esophagitis (K21.9) Active confirmed Problem 027729491 Hirsutism (L68.0) Active confirmed Problem 39565529 Ptosis of both eyelids (H02.403) Active confirmed Problem 245501814 Interstitial yeimy g disease (J84.9) Active confirmed Problem 18929613 Post-menopause o n HRT (hormone replacement therapy) (Z79.890) Active confirmed Problem 39604104 Paresthesia of s kin (R20.2) Active confirmed Problem 670162733 Uncontrolled typ e 2 diabetes mellitus without complication, without long-term current use of insulin (E11.65) Active confirmed Problem 06835144 Other hyperlipidemia (E78.49) Active confirmed Vital Signs Oximetry 94 09/16/2023 Blood pressure diastolic 60 mm Hg 09/16/2023 Blood pressure systolic 106 mm Hg 09/16/2023 Weight 143.6 lbs 06/10/2023 Encounters Encounter Location Date Provider Diagnosis [facility] [address] [place] [id number] [facility] [address] [place] [address] 12/22/2022 Araselite Jose Uncontrolled type 2 diabetes mellitus without complication, without long-term current use of insulin E11.65 [facility] [address] [place] [address] 01/12/2023 Grete Jose [address] [id number] 12/24/2022 [facility] [address] [place] [address] 02/02/2023 Grete Jose [facility] [address] [place] [address] 02/02/2023 Araselite Jose Uncontrolled type 2 diabetes mellitus without complication, without long-term current use of insulin E11.[address] [id number] 02/18/2023 Grete Jose Interstitial lung disease J84.9 ; Uncontrolled type 2 diabetes mellitus without complication, without long-term current use of insulin E11.65 ; Other hyperlipidemia E78.49 and Hair loss L65.9 [facility] [address] [place] [address] 04/15/2023 Araselijimbo Jose Uncontrolled type 2 diabetes mellitus without complication, without long-term current use of insulin E11.[address] [id number] 05/20/2023 Gre Jose Interstitial lung disease J84.9 ; Uncontrolled type 2 diabetes mellitus without complication, without long-term current use of insulin E11.65 ; Elevated liver enzymes R74.8 and Hirsutism L68.0 [facility] [address] [place] [address] 05/06/2023 Grete Jose [facility] [address] [place] [address] 06/10/2023 Grejimbo Jose Uncontrolled type 2 diabetes mellitus without complication, without long-term current use of insulin E11.65 [facility] [address] [place] [address] 06/17/2023 Cyndi Garcia Hirsutism L68.0 [facility] [address] [place], [place] [id number] 09/16/2023 Grejimbo Jose Uncontrolled type 2 diabetes mellitus without complication, without long-term current use of insulin E11.65 [facility] [address] [place] [address] 09/02/2023 Grete Jose [facility] [address] [place] [address] 09/02/2023 Grejimbo Jose Uncontrolled type 2 diabetes mellitus without complication, without long-term current use of insulin E11.65 [facility] [address] [place] [id number] 11/28/2023 Grete Jose [facility] [address] [place] [address] [id number] 02/25/2023 Araselite Jose [facility] [address] [place] [address] 03/11/2023 Cyndi Jose Uncontrolled type 2 diabetes mellitus without complication, without long-term current use of insulin E11.65 [facility] [address] [id number] 03/18/2023 [facility] [address] [id number] 04/01/2023 Grete Jose [facility] [address] [id number] 04/11/2023 Grete Jose [facility] [address] [place] [id number] 06/03/2023 Grete Jose [facility] [address] [place] [id number] 06/23/2023 Grete Jose [facility] [address] [place] [id number] 06/23/2023 Grete Jose [facility] [place] [address] [place], [place] [id number] 06/24/2023 Cyndi Garcia Uncontrolled type 2 diabetes mellitus without complication, without long-term current use of insulin E11.65 [facility] [address] [place], [place] [id number] 07/12/2023 Cyndi [facility]STALRA [facility] [address] [place] [id number] 09/12/2023 Cyn[facility] [address] [place] [address] [id number] 10/19/2023 Cyndi Garcia Assessments Encounter Date Diagnosis (ICD Code) Assessment Notes Treatment Notes Treatment Clinical Notes 12/22/2022 Uncontrolled type 2 diabetes mellitus without complication, without long-term current use of insulin (ICD-10 - E11.65) 02/02/2023 Uncontrolled type 2 diabetes mellitus without complication, without long-term current use of insulin (ICD-10 - E11.65) 02/18/2023 Interstitial lung disease (ICD-10 - J84.9) Has follow up with pulmonary next month. 04/15/2023 Uncontrolled type 2 diabetes mellitus without complication, without long-term current use of insulin (ICD-10 - E11.65) 03/11/2023 Uncontrolled type 2 diabetes mellitus without complication, without long-term current use of insulin (ICD-10 - E11.65) 06/10/2023 Uncontrolled type 2 diabetes mellitus without complication, without long-term current use of insulin (ICD-10 - E11.65) 06/17/2023 Hirsutism (ICD-10 - L68.0) 09/16/2023 Uncontrolled type 2 diabetes mellitus without complication, without long-term current use of insulin (ICD-10 - E11.65) Reviewed diabetic action plan and goals. A1c has improved. Still not to goal. Will be stopping prednisone in a few weeks. She is thinking about possibility of insulin pump if still needing mealtime insulin going forward. Will wait at this time. Recommend follow up in 3 months or sooner if concerns/problems. Patient understands and is agreeable with plan. Will call back/return if increased problems. A total of 30-39 minutes was spent on record review, care coordination, face to face time with the patient, and documentation for today's visit 06/24/2023 Uncontrolled type 2 diabetes mellitus without complication, without long-term current use of insulin (ICD-10 - E11.65) 09/02/2023 Uncontrolled type 2 diabetes mellitus without complication, without long-term current use of insulin (ICD-10 - E11.65) 05/20/2023 Interstitial lung disease (ICD-10 - J84.9) Continue to follow with pulmonary. 05/20/2023 Uncontrolled type 2 diabetes mellitus without complication, without long-term current use of insulin (ICD-10 - E11.65) Reviewed diabetic action plan and goals A1c has improved. Still not to goal. Discussed increasing supper time insulin by 2 units every 2-3 days up to 18 units. She will continue to follow with [place] pharmacist as well. Using CGM and doing well with that. OK to recheck in 3 months. Patient understands and is agreeable with plan. Will call back/return if increased problems. 05/20/2023 Elevated liver enzymes (ICD-10 - R74.8) Lab work pending. 02/18/2023 Uncontrolled type 2 diabetes mellitus without complication, without long-term current use of insulin (ICD-10 - E11.65) Reviewed diabetic action plan and goals. A1c has improved slightly but still not to goal. Will decrease evening glipizide dose due to concerns about hypoglycemia in the morning. Edgar did not show that though. May need to increase dose again if increased glucose readings. Work on healthy lifestyle choices as able. Recommend follow up in 3 months. Patient understands and is agreeable with plan. Will call back/return if increased problems. 02/18/2023 Other hyperlipidemia (ICD-10 - E78.49) Lab work pending. 05/20/2023 Hirsutism (ICD-10 - L68.0) Reviewed management options. Prefer to avoid restart HRT at this time. Consider trial of spironolactone particularly in the context of concerns about fluid retention as well. She will hold furosemide for now and recheck BMP in 1 month. Medication effects, side effects and interactions reviewed with patient. Questions were answered. Patient to call with any problems. Patient understands and is agreeable with plan. Will call back/return if increased problems. 02/18/2023 Hair loss (ICD-10 - L65.9) Likely due to health issues and medications. Will provide referral to dermatology to see if any recommendations. 12/22/2022 Other 1. Increase glipizide to 1 tablet twice a day. 2. Continue to increase your insulin by 2units every other day until your morning numbers are consistently between 80-130mg/dL. So, increase to 60units for two days, then increase to 62units for two days, then 64units for two days, etc. 3. Test your blood sugar in the morning before breakfast (goal of 80-130mg/dL), 2 hours after a meal (goal less than 180mg/dL), and anytime you feel it may be low (feeling shaky, dizzy, sweaty, weak). If your blood sugar is below 70mg/dL, have something to eat to bring it up. If your blood sugar is NOT below 70mg/dL, take a 5 minute break, have a glass water, and let the feeling pass. This is your body adjusting to lower and more normal blood sugar levels. Follow-up: Jan 12, 2023 11:30 AMPharmacist Visit with Isabel Gallagher [facility] ([facility] ) [address] [place] [phone] Isabel Gallagher, Pharm.D., BCACPMedication Therapy Management [phone] 01/12/2023 Other 1. You could start a B-complex supplement daily and see if this helps with nerve numbness/pain. But getting blood sugar levels down may also help. 2. Continue to increase your insulin by 2units every other day until your morning numbers are consistently between 80-130mg/dL. 3. I sent in a prescription for a higher concentrated insulin called Tresiba. This allows you to take insulin doses higher than 80units in ONE injection. Follow-up: Feb 02, 2023 12:00 PMPharmacist Visit with Isabel Gallagher [facility] ([facility] ) [address] [place] [phone] Christa RodriguezTaurusD., BCACPMedication Therapy Management [phone] 02/02/2023 Other 1. Continue to increase your insulin by 2units every other day until your morning numbers are consistently between 80-130mg/dL. Follow-up: Apr 15, 2023 1:00 PMMTM [facility] [address] [place] [address] [place] [phone] Isabel Gallagher Pharm.D., BCACPMedication Therapy Management [phone] 04/15/2023 Other 1. Stop Semglee U100. 2. Start Tresiba U200 and reduce your daily injection to 140units once a day. 3. Start Novolog 10units before every meal and 5units before every snack. Follow-up: May 06, 2023 11:30 AMPharmacist [facility] [phone] Isabel Gallagher, PharmTaurusD., BCACPMedication Therapy Management [phone] 05/06/2023 Other 1. Increase Tresiba to 144units injected once daily 2. Increase Novolog to 12units three times daily within 15 minutes prior to meals and 6units with snacks. 3. Any time you feel symptoms of low (shaky, dizzy, sweaty, weak..) CHECK YOUR BLOOD SUGAR FIRST. If your blood sugar is below 70mg/dL, have something to eat to bring it up. If your blood sugar is NOT below 70mg/dL, take a 5 minute break, have a glass water, and let the feeling pass. This is your body adjusting to lower and more normal blood sugar levels. 4. Don't use the glucose tablets as snacks __ reserve those for blood sugar levels under 70mg/dL. Try to find some low-carb snacks that are convenient, like hard boiled eggs, meat and cheese sticks, raw veggies. 5. I will talk with Cyndi about getting you a note regarding workload restrictions Follow-up: Future Appointments 05/06/2023 - 11/02/2023 Date Visit Type Length Department Provider 06/10/2023 1:00 PM RETURN - MTM 30 min ETR [facility] MTM EXT Isabel Gallagher, [facility] Isabel Gallagher, Pharm.D., BCACPMedication Therapy Management [phone] 06/10/2023 Other 1. You can spray fluticasone nasal spray to the skin (and allow to dry) prior to sensor and cover placement to reduce skin sensitivity. You could also try Skin-prep spray to the skin prior to sensor and cover placement. 2. Take your Novolog 12units before breakfast, 10units before lunch, and 14units before dinner. 3. Try to have a more balanced snack between lunch and dinner -- something with healthy fat will help stabilize the sugars without spiking it. Follow-up: Return in 6 weeks (on 07/22/2023) for Blood sugar recheck, in person, at 2pm. Isabel Gallagher PharmD 06/10/2023 02:17:39 PM > 09/02/2023 Other ASSESSMENT: Medication Adherence/Access: No issues identified ILD:Plan in place with pulmonology - hopefully blood sugar levels improve off of prednisone Diabetes: Patient is not meeting A1c goal of < 7%. But continues to improve down to 7.8% from 8.6% from 9.9 from 10.2.Patient is not meeting goal of > 70% time in target with continuous glucose monitoringPatient would benefit from increasing Tresiba to target fasting blood sugar levels and monitor closely with wean off of prednisone. PLAN: 1. Increase Tresiba to 148units injected once per day. 2. No changes to meal-time insulin right now -- we will watch closely if blood sugar levels improve with wean off of prednisone. 3. 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 Follow-up: Return in 8 weeks (on 10/28/2023) for Blood sugar recheck. Isabel Gallagher, Michelle 09/02/2023 02:51:50 PM > All changes were made via collaborative practice agreement with primary care provider Plan Of Treatment Next Appt Details Provider Name:Cyndi waters, 12/09/2023 01:00:00 PM, [address] [place], [address], Provider Name:Cyndi waters, 12/23/2023 01:15:00 PM, [address] [place], [place], [phone], Insurance Providers Payer Name Payer Address Payer Phone Subscriber Number Group Number Insured Name Patient Relationship to Insured Coverage Start Date Coverage End Date [facility] [address] [address] [place] [phone] [id number] Valerie Wisdom Self - patient is the insured 4 Medical (General) History Medical History History ICD Code DOFV 10-24-2003 HEMORRHOIDS Hx of anxiety Diabetes mellitus, type II Hypertriglyceridemia Major depressive disorder, recurrent epi sode, in full remission Gastro-esophageal reflux disease without esophagitis K21.9 Post-menopause on HRT (hormone replaceme nt therapy) Z79.890 Ptosis of both eyelids H02.403 Surgical History Surgery Date(Month/Year) C-sections X 2 1988,1989 Cyst removal from ovary/ Laparotomy Hemorrhoid surgery 08/2004 No personal or family history of bleedin g problems Tubal No personal or family history of anesthe jt problems Hospitalization History Reason Date(Month/Year) [facility] ER -- URI 04/10/2007 Chest pain, anxiety 11/2004
--- OUTSIDE RECORDS SUMMARY | 2023-12-07 09:03 | XMS_ITS ---
Author Organization [facility] S Address [address] [phone] Care Team Providers Care Plumber And Tinner Name Role Phone Cyndi Garcia PA-C Primary Care Provider REASON FOR VISIT MTM BG Check Encounters Encounter Location Date Provider Diagnosis [facility] [address] [place] [address] 11/11/2023 Cyndi Garcia Plan Of Treatment Next Appt Details Provider Name:Cyndi waters, 12/09/2023 01:00:00 PM, [address] [place], [phone], Provider Name:Cyndi waters, 12/23/2023 01:15:00 PM, [address] [place] [address], [phone], Progress Notes * Valerie WISDOM MDOB: (63 yo F)Acc No.[id number]:11/11/2023 Patient:?Valerie WISDOM Provider:?Cyndi Garcia PA-C?Resou rce:Isabel Gallagher :1960???Age:63 Y???Sex:Female D ate:11/11/2023 Address:[facility] [address], [id number] Subjective: * Chief Complaints: * ???1. MTM BG Check. * Medical History:? Objective: * Vitals:? Assessment: Plan: * Treatment: * * Electronic signature of NICOLE Mckay PA-C, PA-C on 12/07/2023 at 09:02 AM CDT Sign off status: Pending * Provider:?Cyndi Garcia PA-C Date:? Generated for Karla murphy/Jerome/eTransmitting on:?12/07/2023 09:02 AM CDT
--- OUTSIDE RECORDS SUMMARY | 2023-12-07 09:03 | XMS_ITS ---
Author Organization [facility] S Address [address] [phone] Care Team Providers Care Household Manager Name Role Phone Cyndi Garcia PA-C Primary Care Provider REASON FOR VISIT RN CCM/Gabapentin Medications Medication SIG (Take, Route, Fr equency, Duration) Notes Start Date End Date Status Gabapentin 300 MG 1 capsule Orally twi ce a day for 90 days 10/19/2023 Active Encounters Encounter Location Date Provider Diagnosis [address] [phone] 10/19/2023 Cyndi Garcia Plan Of Treatment Medication Medication Name Sig Start Date Stop Date Notes Gabapentin 100 MG 3 capsule Orally 2 time daily Gabapentin 300 MG 1 capsule Orally twice a day for 90 days 10/19/2023 Next Appt Details Provider Name:Cyndi waters, 12/09/2023 01:00:00 PM, [address] [place], [address], Provider Name:Cyndi waters, 12/23/2023 01:15:00 PM, [address] [place] [address], [phone], Progress Notes * Valerie WISDOM MDOB: (63 yo F)Acc No.[id number]:10/19/2023 Patient:?Valerie WISDOM :1960???Age:63 Y???Sex:Female Address:[facility] [address], [place] [address] * Refills? Stop Gabapentin Capsule, 100 MG, Orally, 3 capsule, 2 time daily Start Gabapentin Capsule, 300 MG, Orally, 180 Capsule, 1 capsule, twice a day, 90 days, Refills=0 * true * Date:? Generated for Karla murphy/Jerome/eTransmitting on:?12/07/2023 09:02 AM CDT
[2023-12-07 09:04] LABS: Slide Review Reflex No
[2023-12-07] MEDS: 0.9 % SODIUM CHLORIDE 500 ML 500 ML IV (09:11)
[2023-12-07 09:16] LABS: Chloride* 104 mmol/L (96-114); Potassium* 3.9 mmol/L (3.6-5.1); Sodium* 137 mmol/L (135-149)
[2023-12-07 09:17] LABS: Albumin* 4.9 g/dL (3.3-5.0)
[2023-12-07 09:18] LABS: Creatinine* 0.9 mg/dL (0.5-1.5); Est. Creatinine Clearance* 52.91; Estimated Glomerular Filt Rate 71 ml/min
[2023-12-07 09:19] LABS: Anion Gap 10 mEq/L (7-15); Blood Urea Nitrogen* 14 mg/dL (7-30); Carbon Dioxide* 23 mmol/L (20-32)
[2023-12-07 09:20] LABS: Bilirubin Direct* 0.2 mg/dL (0.0-0.5); Bilirubin Total* 1.2 mg/dL (0.1-1.5); Calcium* 10.4 mg/dL (8.4-10.6); Glucose* 114 mg/dL (60-115); Total Protein* 8.4 g/dL (6.0-8.3)
[2023-12-07 09:21] LABS: Alanine Aminotransferase* 29 U/L (4-35); Alkaline Phosphatase* 68 U/L (40-150); Aspartate Amino Transferase* 40 U/L (12-35); Magnesium* 2.2 mg/dL (1.5-2.6)
[2023-12-07 09:22] LABS: C Reactive Protein* < 0.5 mg/dL (0.5-1.0)
[2023-12-07 09:31] LABS: Troponin I* < 0.01 ng/mL (0.01-0.04)
[2023-12-07 09:40] LABS: PCR FLU A Negative PCR FLU A (Negative); PCR FLU B Negative PCR FLU B (Negative); PCR RSV Negative PCR RSV (Negative); SARS PCR* Negative SARS-CoV-2 (Negative)
[2023-12-07 10:40] LABS: Appearance Urine Slightly Cloudy (Clear); Bilirubin Urine 1+ (Negative); Blood Urine Negative (Negative); Color Urine Dark yellow (Yellow); Glucose Urine Negative (Negative); Ketones Urine Negative (Negative); Leukocyte Esterase Urine Trace (Negative); Nitrite Urine Negative (Negative); Protein Urine 1+ (Negative); Specific Gravity Urine 1.025 (1.000-1.030)
[2023-12-07 10:49] VITALS: BP 128/91; PULSE 92; RESP 16; O2SAT 98
[2023-12-07 11:23] LABS: Bacteria Urine Few; Mucus Urine Few; RBC Urine 0-2 (0-2); Squamous Epithelial Cell Urine Few (None-Few); WBC Urine 0-2 (0-5)
[2023-12-09 18:45] LABS: C.Difficile Negative (Negative); CDIFFEPI 027 PRESUMPTIVE NEGATIVE (Negative)
== END 2023-12-07 11:57 | disposition home or self-care (01) ==
PROVIDERS: Emergency Provider Family Medicine
DX: K52.9 Noninfective gastroenteritis and colitis, unspecified (principal)
CPT/HCPCS: 36415; 71046; 80048; 80076; 81001; 82947; 82962; 83605; 83735; 84484; 85025; 86140; 87086; 87493; 87631; 94761; 96374; 99284; J2405; J7030